=== PATIENT | female | born 1970 | race Caucasian/White ===

== ENCOUNTER 2017-11-18 15:59 | Observation (INO) ==
[2017-11-18 17:22] LABS: Baso # (Auto) 0.1 th/mm3 (0.0-0.2); Baso % (Auto) 0.5 % (0.0-2.0); Eos # (Auto) 0.4 th/mm3 (0.0-0.4); Hematocrit 43.1 % (35.0-46.0); Hemoglobin 14.7 gm/dL (11.6-15.3); Lymph # (Auto) 3.3 th/mm3 (1.0-4.8); Lymph % (Auto) 26.2 % (9.0-44.0); Mean Corpuscular Hemoglobin 31.3 pg (27.0-34.0); Mean Platelet Volume 9.6 fL (7.0-11.0); Mono # (Auto) 0.7 th/mm3 (0.0-0.9); Mono % (Auto) 5.8 % (0.0-8.0); Neut # (Auto) 8.2 th/mm3 (1.8-7.7); Neut % (Auto) 64.5 % (16.0-70.0); Platelet Count 275 th/mm3 (150-450); Red Blood Count 4.69 mil/mm3 (4.00-5.30); Red Cell Distribution Width 14.1 % (11.6-17.2); White Blood Count 12.7 th/mm3 (4.0-11.0)
--- NOTE | 2017-11-18 17:25 | XR ---
EXAM DATE: 11/18/2017 5:05 PM EDT AGE/SEX: 47 years / Female INDICATIONS: Chest pain going down left arm. CLINICAL DATA: This is the patient's initial encounter. Patient reports that signs and symptoms have been present for 2 days and indicates a pain score of 6/10. MEDICAL/SURGICAL HISTORY: None. None. COMPARISON: No prior exams available for comparison. FINDINGS: The heart size is normal. The lungs are free of focal consolidation. There is a calcified granuloma i n the mid right lung. Possible granuloma in the left upper lung. No effusion is seen. CONCLUSION: No acute abnormality is seen. Electronically signed by: Franck Tellez MD 11/18/2017 5:24 PM EDT
[2017-11-18 17:30] LABS: Activated Partial Thrombo Time 25.2 sec (24.3-30.1); Prothrombin Time 10.3 sec (9.8-11.6)
[2017-11-18 17:40] LABS: Creatine Kinase 257 U/L (26-192)
[2017-11-18 17:50] LABS: Anion Gap 7 meq/L (5-15); Blood Urea Nitrogen 12 mg/dL (7-18); Carbon Dioxide 28.3 meq/L (21.0-32.0); Chloride 107 meq/L (98-107); Glomerular Filtration Rate 51 mL/min (>89); Glucose,Random 90 mg/dL (74-106); Magnesium 2.2 mg/dL (1.5-2.5); Potassium 4.9 meq/L (3.5-5.1); Sodium 142 meq/L (136-145)
[2017-11-18 17:52] LABS: CKMB Percent 1.2 % (0.0-4.0); Creatine Kinase MB 3.2 ng/mL (0.5-3.6)
[2017-11-18] MEDS ORDERED: Aspirin 325 MG Tablet PO ONE (19:53)
--- NOTE | 2017-11-18 20:44 | XR ---
EXAM DATE: 11/18/2017 8:18 PM EDT AGE/SEX: 47 years / Female INDICATIONS: Pubic symphysis pain due to fall. CLINICAL DATA: This is the patient's initial encounter. Patient reports that signs and symptoms have been present for 1 day and indicates a pain score of 7/10. MEDICAL/SURGICAL HISTORY: None. None. COMPARISON: No prior exams available for comparison. FINDINGS: AP view of the pelvis demonstrates no fracture or dislocation. Mineralization is normal. There is mil d sclerosis along the iliac side of the inferior sacroiliac joints bilaterally. Sacrum demonstrates n o abnormality. No significant osteoarthritis is present at the hip joints. No soft tissue abnormality is identified. CONCLUSION: 1. No acute osseous abnormality is identified. 2. Mild sclerosis along the inferior sacroiliac joints bilaterally. Electronically signed by: Franck Bain MD 11/18/2017 8:43 PM EDT
[2017-11-18] MEDS ORDERED: Acetaminophen 500 MG Tablet PO PRN (20:49)
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
[2017-11-18 21:51] LABS: Creatine Kinase 205 U/L (26-192)
[2017-11-18 22:04] LABS: CKMB Percent 1.7 % (0.0-4.0); Creatine Kinase MB 3.5 ng/mL (0.5-3.6)
[2017-11-18] MEDS: Sod Chloride 0.9% Inj 1,000 ML IV.CONT SCH (23:43)
[2017-11-19 02:14] LABS: Creatine Kinase 168 U/L (26-192)
--- NOTE | 2017-11-19 09:38 | P.HPCA ---
History of Present Illness Primary Care Physician: No Primary Care Physician Chief Complaint: Chest pain History of Present Illness: This is a 47-year-old female with history of COPD and chronic back pain that presents to ED with complaint of having 2 days of constant left arm discomfort is worse with any type of movement and also developing a chest discomfort yesterday while she was walking. She describes as a sharp and dull pain. Is in the left side of her chest. Describes pain as a 3 out of 10. States less of her hours. Is not currently present. She was short of breath, nauseous, and diaphoretic. States she began a cardiac workup about 6 months ago in [place] and was to have a outpatient stress test but did not follow-up for. She is here visiting from [place]. Currently denies chest discomfort. Denies recent illness. Patient continues to smoke cigarettes but states she is reduced to about one half pack cigarettes a day for last several months but was smoking on average up to 2 packs a day for about 20 years. States that her mother age 43 of myocardial infarction. Patient has had hysterectomy, carpal tunnel release, appendectomy, and back surgery. - Diagnosis (1) Chest pain (2) COPD (chronic obstructive pulmonary disease) (3) Tobacco abuse (4) Chronic back pain Inpatient Certification: I certify that the inpatient services were ordered in accordance with Medicare regulations governing the order. This includes certification that hospital inpatient services are reasonable and necessary and in the case of services not specified as inpatient-only under 42 CFR 419.22(n), that they are appropriately provided as inpatient services in accordance to with the 2-midnight benchmark under 43 CFR 412.3(e) Review of Systems General: Patient denies fevers, chills, and recent travel. HEENT: Patient denies headache, sore throat, difficulty swallowing. Cardiovascular: Has the chest discomfort as mentioned above. Denies sensation of heart beating rapidly or irregularly. No syncope. She was diaphoretic. Respiratory: She was short of breath. Denies inspirational chest discomfort. Denies coughing wheezing or hemoptysis. GI: Patient was nauseous. Patient denies vomiting, diarrhea, abdominal pain, bloody stools. Musculoskeletal: Patient denies joint pain or edema. Denies calf pain or edema. Neurovascular: Patient denies numbness, tingling, weakness in extremities. Denies headache. Endocrine: Denies polyuria and polydipsia. Hematologic: Denies easy bruising. Skin: Denies rash or itching. PMFSH - History History Provided By: Patient - Medical History Medical History: Medical History (Last Reviewed 11/18/17 @ 21:23 by DEEPA Garnica) COPD (chronic obstructive pulmonary disease) Carpal tunnel syndrome on both sides Emphysema lung History of hysterectomy - Surgical History Surgical History: Surgical History (Last Reviewed 11/18/17 @ 21:23 by DEEPA Garnica) Hx of appendectomy Previous back surgery - Tobacco History Second Hand Smoke Exposure: Yes Tobacco Use In Past 30 Days: Yes Smoking Status: Current every day smoker Tobacco Type: Cigarettes - Alcohol History How Often Do You Have a Drink Containing Alcohol: Never - Substance Use History Substance History: No History of Abuse - Travel History Recent Travel in the [place] Within the Last 8 Weeks: No Recent Travel Out of the Country Within the Last 8 Weeks: No - Immunization History Tetanus Immunization: <5 Years Hx Influenza Vaccine This Season: No Medications and Allergies Active Medications: Active Medications Acetaminophen (Tylenol) 500 mg PO Q4H PRN PRN Reason: HEADACHE Last Admin: 11/19/17 08:16 Dose: 500 mg Hydrocodone Bitart/Acetaminophen ([place] 7.5/325) 1 tab PO Q4H PRN PRN Reason: PAIN SCALE 1 TO 7 Albuterol (Duoneb Neb (Prn)) 1 ampul NEB Q4HR NEB PRN PRN Reason: SHORTNESS OF BREATH/WHEEZING Sodium Chloride (Ns Inj) 1,000 mls @ 100 mls/hr IV.CONT .Q10H [facility] Last Admin: 11/18/17 23:43 Dose: 100 mls/hr Sodium Chloride (Ns Flush) 2 ml IV.FLUSH BID [facility] Last Admin: 11/19/17 08:17 Dose: Not Given Sodium Chloride (Ns Flush) 2 ml IV.FLUSH PRN PRN PRN Reason: FLUSH AFTER USING IV ACCESS Allergies Allergy/AdvReac Type Severity Reaction Status Date / Time ketorolac [From Toradol] Allergy Intermediate Rash Verified 11/18/17 21:04 tramadol Allergy Intermediate Rash Verified 11/18/17 21:04 aspirin AdvReac Intermediate Abdominal Verified 11/18/17 21:04 Pain ibuprofen AdvReac Intermediate Constipatio Verified 11/18/17 21:04 n Home Medications Medication Instructions Recorded Confirmed Type No Known Home Medications 11/18/17 11/18/17 History Exam Vital signs: Vital Signs 11/18/17 16:12 11/18/17 21:07 11/18/17 21:08 Temperature 98.2 F Pulse Rate 87 76 Respiratory Rate 16 Blood Pressure 119/74 Pulse Oximetry 99 97 11/18/17 21:09 11/18/17 22:12 11/18/17 23:44 Temperature 96.3 F L Pulse Rate 67 64 Respiratory Rate 17 20 Blood Pressure 111/55 L 97/68 L Pulse Oximetry 97 100 96 11/19/17 00:00 11/19/17 04:00 11/19/17 08:00 Temperature 96.3 F L 98.6 F 97.9 F Pulse Rate 64 56 L 70 Respiratory Rate 20 16 18 Blood Pressure 97/68 L 102/66 Pulse Oximetry 100 99 99 Intake & Output 11/18/17 11/19/17 11/19/17 18:59 06:59 18:59 Weight 58.967 kg Narrative: GENERAL: This is a well-nourished, well-developed patient, in no apparent distress. Patient speaks in clear complete sentences. Patient is pleasant. HEENT: Head is atraumatic and normocephalic. Neck is supple without lymphadenopathy and trachea is midline. No JVD or carotid bruits. CARDIOVASCULAR: Regular rate and rhythm without murmurs, gallops, or rubs. RESPIRATORY: Clear to auscultation. Breath sounds equal bilaterally. No wheezes , rales, or rhonchi. Chest wall is nontender. No use of accessory muscles. GASTROINTESTINAL: Abdomen is nontender, nondistended. Abdomen soft. No obvious pulsatile mass or bruit. No CVA tenderness. Strong femoral pulses bilaterally. Normal bowel sounds in all quadrants. MUSCULOSKELETAL: Patient is moving upper and lower extremities freely. No calf tenderness or edema, no Homans sign. Strong pulses in upper and lower extremities. NEUROLOGICAL: Patient is alert and oriented. Cranial nerves 2-12 are grossly intact. No focal deficits and speech is clear. SKIN: No rash and turgor is normal. Results 11/18/17 16:54 11/18/17 16:54 Cardiac Enzymes 11/18/17 11/18/17 11/19/17 Range/Units 16:54 21:20 01:30 CK-MB (CK-2) 3.2 3.5 (0.5-3.6) ng/mL Troponin I Less than 0.02 L Less than 0.02 L Less than 0.02 L (0.02-0.05) ng/mL Coagulation 11/18/17 Range/Units 16:54 PT 10.3 (9.8-11.6) sec APTT 25.2 (24.3-30.1) sec CBC 11/18/17 Range/Units 16:54 WBC 12.7 H (4.0-11.0) th/mm3 RBC 4.69 (4.00-5.30) mil/mm3 Hgb 14.7 (11.6-15.3) gm/dL Hct 43.1 (35.0-46.0) % Plt Count 275 (150-450) th/mm3 Neut # (Auto) 8.2 H (1.8-7.7) th/mm3 Lymph # (Auto) 3.3 (1.0-4.8) th/mm3 [place] # (Auto) 0.7 (0.0-0.9) th/mm3 Eos # (Auto) 0.4 (0.0-0.4) th/mm3 Baso # (Auto) 0.1 (0.0-0.2) th/mm3 Comprehensive Metabolic Panel 11/18/17 Range/Units 16:54 Sodium 142 (136-145) meq/L Potassium 4.9 (3.5-5.1) meq/L Chloride 107 (98-107) meq/L Carbon Dioxide 28.3 (21.0-32.0) meq/L BUN 12 (7-18) mg/dL Creatinine 1.14 H (0.50-1.00) mg/dL Calcium 9.0 (8.5-10.1) mg/dL Intake and Output 11/18/17 11/19/17 11/19/17 22:59 06:59 14:59 Other: Weight 58.967 kg EKG interpretations - EKG EKG shows: sinus rhythm (EKGs are sinus rhythm without significant ST segment depressions or elevations.) Caprini VTE Risk Assessment Caprini VTE Risk Assessment: No/Low Risk (score <= 1) Caprini Risk Assessment Model: Point Value = 1 Point Value = 2 Point Value = 3 Point Value = 5 Age 41-60 Minor surgery BMI > 25 kg/m2 Swollen legs Varicose veins or History of unexplained or recurrent spontaneous Oral contraceptives or hormone replacement Sepsis (< 1 month) Serious lung disease, including pneumonia (< 1 month) Abnormal pulmonary function Acute myocardial infarction Congestive heart failure (< 1 month) History of inflammatory bowel disease Medical patient at bed rest Age 61-74 Arthroscopic surgery Major open surgery (> 45 min) Laparoscopic surgery (> 45 min) Malignancy Confined to bed (> 72 hours) Immobilizing plaster cast Central venous access Age >= 75 History of VTE Family history of VTE Factor V Leiden Prothrombin [id number] Lupus anticoagulant Anticardiolipin antibodies Elevated serum homocysteine Heparin-induced thrombocytopenia Other congenital or acquired thrombophilia Stroke (< 1 month) Elective arthroplasty Hip, pelvis, or leg fracture Acute spinal cord injury (< 1 month) Prophylaxis Regimen: Total Risk Factor Score Risk Level Prophylaxis Regimen 0-1 Low Early ambulation 2 Moderate Order ONE of the following: *Sequential Compression Device (SCD) *Heparin 5000 units SQ BID 3-4 Higher Order ONE of the following medications: *Heparin 5000 units SQ TID *Enoxaparin/Lovenox 40 mg SQ daily (WT < 150 kg, CrCl > 30 mL/min) *Enoxaparin/Lovenox 30 mg SQ daily (WT < 150 kg, CrCl > 10-29 mL/min) *Enoxaparin/Lovenox 30 mg SQ BID (WT < 150 kg, CrCl > 30 mL/min) AND/OR *Sequential Compression Device (SCD) 5 or more Highest Order ONE of the following medications: *Heparin 5000 units SQ TID (Preferred with Epidurals) *Enoxaparin/Lovenox 40 mg SQ daily (WT < 150 kg, CrCl > 30 mL/min) *Enoxaparin/Lovenox 30 mg SQ daily (WT < 150 kg, CrCl > 10-29 mL/min) *Enoxaparin/Lovenox 30 mg SQ BID (WT < 150 kg, CrCl > 30 mL/min) AND *Sequential Compression Device (SCD) Assessment and Plan - Assessment (1) Chest pain Code(s): R07.9 - Chest pain, unspecified Status: Acute (2) COPD (chronic obstructive pulmonary disease) Code(s): J44.9 - Chronic obstructive pulmonary disease, unspecified Status: Acute (3) Tobacco abuse Code(s): Z72.0 - Tobacco use Status: Acute (4) Chronic back pain Code(s): M54.9 - Dorsalgia, unspecified; G89.29 - Other chronic pain Status: Acute - Plan * Chest pain: Patient has had serial cardiac enzymes and EKGs for ruling out purposes. She has been seen by Dr. Shalom Montoya of cardiology in the chest pain center. She will undergo a Lexiscan. Patient will be discharged home if her stress test is nonischemic with instructions to follow-up with PCP. Return to ED for interval issues. * COPD: We will have DuoNeb's as needed. Patient is to quit smoking. * Tobacco abuse: Patient has been counseled on importance of smoking cessation. Patient is stable at this time. She is agreeable to this plan. (1) Chest pain Qualifiers: Chest pain type: unspecified Qualified Code(s): R07.9 - Chest pain, unspecified
[2017-11-19] MEDS ORDERED: Regadenoson Inj 0.4 MG/5 ML Syringe IV.PUSH ONE (10:36)
[2017-11-19] MEDS: Sod Chloride 0.9% Inj 1,000 ML IV.CONT SCH (11:13)
--- NOTE | 2017-11-19 11:39 | NM ---
EXAM DATE: 11/19/2017 11:27 AM EDT AGE/SEX: 47 years / Female INDICATIONS:Angina. . Left sided chest pain. CLINICAL DATA: This is the patient's initial encounter. Patient reports that signs and symptoms have been present for 1 day and indicates a pain score of 3/10. MEDICAL/SURGICAL HISTORY: Chronic obstructive pulmonary disease. Emphysema. Hysterectomy Appe ndectomy. Back surgery COMPARISON: No prior exams available for comparison. DOSE: 8.7 mCi Tc 99m Myoview at rest 25.8 mCi [id number] at stress 0.4 mg Lexiscan STRESS SYMPTOMS: Nausea. EJECTION FRACTION: 57 % TECHNIQUE: The patient underwent pharmacologic stress with infusion of prescribed dose. Continuous ECG tracing was monitored during stress. Gated SPECT imaging was performed after stress and conventi onal SPECT imaging was performed at rest. The examination was performed on a SPECT/CT scanner, both attenuation and non-corrected datasets were reviewed. FINDINGS: Distribution: The maximum perfused segment at stress is in the lateral wall. Perfusion Study: The pattern of perfusion at stress is within normal limits. Gated Study: There are intact wall motion and wall thickening without hypokinetic or dyskinetic segm ents. The ejection fraction is calculated at 57%. RISK CATEGORY: Low (<1% Annual Motality Rate) CONCLUSION: 1. No reversible defects observed to suggest acute ischemia. Electronically signed by: Patrick Reich MD 11/19/2017 11:38 AM EDT
--- NOTE | 2017-11-19 14:14 | ECG ---
Date Performed: 11/18/2017 Time Performed: 21:18:16 PTAGE: 47 years EKG: Sinus rhythm WITH SINUS ARRHYTHMIA NORMAL ECG PREVIOUS TRACING : 11/18/2017 16.46 Since previous tracing, no significant change noted DOCTOR: Shalom Montoya Interpretating Date/Time 11/19/2017 14:12:51
--- NOTE | 2017-11-19 14:14 | ECG ---
Date Performed: 11/18/2017 Time Performed: 16:46:00 PTAGE: 47 years EKG: Sinus rhythm POSSIBLE LEFT ATRIAL ENLARGEMENT BORDERLINE ECG NO PREVIOUS TRACING DOCTOR: Shalom Montoya Interpretating Date/Time 11/19/2017 14:13:02
--- NOTE | 2017-12-09 14:08 | ECG ---
Date Performed: 11/19/2017 Time Performed: 00:52:16 PTAGE: 47 years EKG: Sinus rhythm WITH SINUS ARRHYTHMIA NORMAL ECG PREVIOUS TRACING : 11/18/2017 21.18 Since previous tracing, no significant change noted DOCTOR: Shalom Montoya Interpretating Date/Time 12/09/2017 14:07:08
--- NOTE | 2018-02-08 13:24 | TR ---
Date Performed: 11/19/2017 Time Performed: 10:38:08 DOCTOR: Shalom Montoya DRUG LIST: CLINICAL HISTORY: REASON FOR TEST: REASON FOR ENDING: OBSERVATION: CONCLUSION: COMMENTS: Lexiscan stress test was performed under standard four minute protocol. Radionuclide was injected one minute prior to ending the test. No electrocardiographic abormalities were present t o suggest ischemia. Nuclear imaging and interpretation are pending.
== END 2017-11-19 12:53 | disposition home or self-care (01) ==
LOC: NEPFCDU 15:59 → NEDA 15:59 → NEPE 15:59 → NEDA 22:03 → NEPFCDU 22:04
PROVIDERS: ADMIT Internal Medicine Cardiovascular Disease; ATTEND Internal Medicine Cardiovascular Disease
DX: J43.9 Emphysema, unspecified; S80.11XA Contusion of right lower leg, initial encounter; F17.210 Nicotine dependence, cigarettes, uncomplicated; W19.XXXA Unspecified fall, initial encounter; Z82.49 Family history of ischemic heart disease and other diseases of the circulatory system; I20.9 Angina pectoris, unspecified; R61 Generalized hyperhidrosis; G89.29 Other chronic pain; M54.9 Dorsalgia, unspecified; R06.02 Shortness of breath; R10.2 Pelvic and perineal pain; R11.0 Nausea; R07.89 Other chest pain